=== PATIENT | male | born 1965 | race Caucasian/White ===

== ENCOUNTER → 2020-06-10 | Outpatient (CLI) | payer BC ==
[~2020-06-10] MED LIST: LISI40TA PO; TRAM50TA2 PO
[2020-06-10 15:26] LABS: BASOPHILS # (AUTO) 0.05 x10^3/uL (0-0.1); BASOPHILS % (AUTO) 1 % (0-1); EOSINOPHILS # (AUTO) 0.25 x10^3/uL (0-0.4); EOSINOPHILS % (AUTO) 4 % (1-7); LYMPHOCYTES # (AUTO) 2.38 x10^3/uL (1-3.4); LYMPHOCYTES % (AUTO) 35 % (22-44); MD NO; MEAN CORPUSCULAR HEMOGLOBIN 28.2 pg (27.5-34.5); MEAN CORPUSCULAR HGB CONC 32.7 g/dL (33.2-36.2); MEAN CORPUSCULAR VOLUME 86.4 fL (81-97); MEAN PLATELET VOLUME 8.5 fL (7.4-10.4); MONOCYTES # (AUTO) 0.52 x10^3/uL (0.2-0.8); MONOCYTES % (AUTO) 8 % (2-9); NEUTROPHILS # (AUTO) 3.52 x10^3/uL (1.8-6.8); NEUTROPHILS % (AUTO) 52 % (42-75); PLATELET COUNT 204 x10^3/uL (130-400); RED BLOOD COUNT 5.22 x10^6/uL (4.38-5.82); RED CELL DISTRIBUTION WIDTH 14.2 % (9.4-14.8)
[2020-06-10 15:35] LABS: ALANINE AMINOTRANSFERASE 31 U/L (12-78); ANION GAP 6 mmol/L (5-15); CALCIUM 8.6 mg/dL (8.5-10.1); CHLORIDE 111 mmol/L (98-107); CREATININE 0.84 mg/dL (0.7-1.3)
[2020-06-10 15:37] LABS: ALKALINE PHOSPHATASE 74 U/L (45-117); BILIRUBIN,TOTAL 0.4 mg/dL (0.2-1.0); TOTAL PROTEIN 7.3 g/dL (6.4-8.2)
[2020-06-10 15:42] LABS: INTERNATIONAL NORMALIZED RATIO 0.97 (0.93-1.1); PROTHROMBIN TIME 10.3 Seconds (9.6-11.5)
[2020-06-10 16:20] LABS: HCT (SEDRATE) 45.1 % (39.2-51.8)
== END | disposition home or self-care (01) ==
LOC: STAR 08:00
PROVIDERS: ATTEND Orthopaedic Surgery Orthopaedic Surgery of the Spine
DX: Z01.818 Encounter for other preprocedural examination (principal); J98.11 Atelectasis
CPT/HCPCS: 36415; 71046; 80053; 83036; 85025; 85610; 85651; 85730; 87635; 93005

== ENCOUNTER 2020-06-14 06:02 | Day surgery (SDC) | payer BC ==
[~2020-06-14] VITALS: Ht 180.3 cm; Wt 110.5 kg
[2020-06-14] MEDS ORDERED: BUPIVACAINE/PF-EPI 0.5% 1:200K ONE (06:22)
[2020-06-14] MEDS ORDERED: VANCOMYCIN 500 MG ONE (06:22)
[2020-06-14] MEDS ORDERED: GABAPENTIN 300 MG CAPSULE PO ONE (06:30)
[2020-06-14] MEDS ORDERED: CHLORHEXIDINE 15 ML UDC MM ONE (06:30)
[2020-06-14] MEDS ORDERED: VANCOMYCIN PMX 1GM/200ML 200 ML IV ONE (06:30)
[2020-06-14] MEDS ORDERED: ACETAMINOPHEN 500 MG TABLET PO ONE (06:30)
[2020-06-14] MEDS ORDERED: MIDAZOLAM 1 MG/ML, 2ML ONE (06:31)
[2020-06-14] MEDS ORDERED: FENTANYL PF 250 MCG/5ML ONE (06:31)
[2020-06-14] MEDS ORDERED: PROPOFOL 100 ML ONE (06:32)
[2020-06-14] MEDS ORDERED: LACTATED RINGERS 1,000 ML IV SCH (06:53)
[2020-06-14] MEDS ORDERED: D5%-LACTATED RINGERS 1,000 ML IV SCH (07:47)
[2020-06-14] MEDS ORDERED: MEPERIDINE/PF 25MG/0.5ML IVPush PRN (08:00)
[2020-06-14] MEDS ORDERED: morphine SULFATE 10 MG/ML, 1ML IVPush PRN ×2 (08:00)
[2020-06-14] MEDS ORDERED: KETOROLAC 30 MG/1 ML IVPush SCH (08:00)
[2020-06-14] MEDS ORDERED: HYDROcodone/APAP 10/325 MG TABLET PO PRN (08:00)
[2020-06-14] MEDS ORDERED: OXYcodone 5 MG/5 ML ORAL.SOL UDC PO PRN (08:00)
[2020-06-14] MEDS ORDERED: PROMETHAZINE 25 MG/ML, 1ML IM PRN (08:00)
[2020-06-14] MEDS ORDERED: hydrALAzine 20 MG/ML, 1ML IV PRN (08:00)
[2020-06-14] MEDS ORDERED: LABETALOL 5MG/ML, 20ML IV PRN (08:00)
[2020-06-14] MEDS ORDERED: ONDANSETRON 2MG/ML, 2ML IVPush PRN ×2 (08:00)
[2020-06-14] MEDS ORDERED: ACETAMINOPHEN 325 MG TABLET PO PRN (08:00)
[2020-06-14] MEDS ORDERED: HYDROmorphone 1 MG/ML, 1ML INJ IVPush PRN (08:00)
[2020-06-14] MEDS ORDERED: PHENYLEPHRINE 10 MG/ML ONE (08:06)
[2020-06-14] MEDS ORDERED: PROPOFOL 10 MG/ML, 20ML ONE (08:38)
[2020-06-14] MEDS ORDERED: FENTANYL PF 100 MCG/2ML ONE ×3 (08:38→10:49)
[2020-06-14] MEDS ORDERED: ROCURONIUM 10MG/ML,5ML ONE (08:38)
[2020-06-14] MEDS ORDERED: CEFAZOLIN 1,000 MG ONE (08:38)
[2020-06-14] MEDS ORDERED: GLYCOPYRROLATE 0.2MG/1ML, 5ML ONE (08:38)
[2020-06-14] MEDS ORDERED: NEOSTIGMINE 1 MG/ML, 10ML ONE (08:38)
[2020-06-14] MEDS ORDERED: ACETAMINOPHEN 650 MG/20.3 ML UDC ONE (10:49)
[2020-06-14] MEDS ORDERED: OXYcodone 5 MG/5 ML ORAL.SOL UDC ONE (10:50)
[2020-06-14] MEDS: FENTANYL PF 100 MCG/2ML IV PRN ×2 (10:55→11:03)
[2020-06-14] MEDS ORDERED: ACETAMINOPHEN 500 MG TABLET PO PRN (11:00)
== END 2020-06-14 12:35 | disposition home or self-care (01) ==
LOC: OUT 06:02
PROVIDERS: ATTEND Orthopaedic Surgery Orthopaedic Surgery of the Spine
DX: M46.1 Sacroiliitis, not elsewhere classified (principal); M25.48 Effusion, other site; M19.90 Unspecified osteoarthritis, unspecified site; E11.9 Type 2 diabetes mellitus without complications; I10 Essential (primary) hypertension; Z79.899 Other long term (current) drug therapy; Z98.890 Other specified postprocedural states; Z82.49 Family history of ischemic heart disease and other diseases of the circulatory system; Z83.3 Family history of diabetes mellitus
CPT/HCPCS: 27279; 72202; C1713; C1762; J0690; J1885; J2250; J2370; J2704; J2710; J3010; J3370; J7120; 36415; 76000; 87635